=== PATIENT | female | born 1965 | race Caucasian/White ===

== ENCOUNTER → 2017-04-24 | Outpatient (CLI) | payer OTHER | LOC: FIMAGING 10:41 | PROVIDERS: ATTEND Physician Assistant Surgical | DX: M43.16 Spondylolisthesis, lumbar region (principal); M43.26 Fusion of spine, lumbar region; M43.22 Fusion of spine, cervical region; D32.9 Benign neoplasm of meninges, unspecified; M50.320 Other cervical disc degeneration, mid-cervical region, unspecified level ==